=== PATIENT | female | born 1995 | race Caucasian/White ===

== ENCOUNTER 2018-02-13 20:02 | Emergency (ER) | payer SELFPAY ==
[2018-02-13 21:08] LABS: BASOPHILS 0.5 % (0-2); EOSINOPHILS 3.5 % (0-7); HEMATOCRIT 39.3 % (36.0-48.0); HEMOGLOBIN 13.4 g/dL (12-16); IMMATURE GRANULOCYTES 0.9 % (0-5); LYMPHOCYTES 30.7 % (15-50); MCH 29.3 pg (26.0-34.0); MCHC 34.1 g/dL (31.0-37.0); MEAN PLATELET VOLUME 9.1 fL (7.4-10.4); MONOCYTES 5.7 % (2-11); NEUTROPHILS 58.7 % (40-80); PLATELET COUNT 297 10x3/uL (130-400); RBC 4.57 10x6/uL (4.00-5.40); WBC 9.4 10x3/uL (4.8-10.8)
[2018-02-13 21:26] LABS: INR 1.01 (0.85-1.17); PROTIME 12.8 SECONDS (11.6-15.0)
[2018-02-13 21:30] LABS: ALBUMIN 3.6 g/dL (3.4-5.0); ALKALINE PHOSPHATASE 66 U/L (46-116); ALT (SGPT) 24 U/L (10-68); BILIRUBIN - TOTAL 0.24 mg/dL (0.2-1.3); CALC OSMOLALITY 279 mosm/kg (275-300); CALCIUM 8.4 mg/dL (8.5-10.1); CARBON DIOXIDE 29.1 mmol/L (21.0-32.0); CHLORIDE - SERUM 104 mmol/L (98-107); CREATININE - SERUM 0.8 mg/dL (0.6-1.3); GLUCOSE 88 mg/dL (74-106); HCG SERUM NEGATIVE (NEGATIVE); POTASSIUM - SERUM 3.7 mmol/L (3.5-5.1); PROTEIN - SERUM 7.7 g/dL (6.4-8.2); SODIUM 141 mmol/L (136-145); UREA NITROGEN 12 mg/dL (7-18); eGFR NON AFRICAN AMERICAN > 90 mL/min (90-120)
[2018-02-13 21:41] LABS: CKMB 1.3 U/L (0.0-3.6); CREATINE KINASE 147 UL (21-215)
[2018-02-13 21:49] LABS: TROPONIN-I < 0.017 ng/mL (0.000-0.060)
== END 2018-02-13 22:04 | disposition home or self-care (01) ==
LOC: D.ER 20:02
PROVIDERS: Family Medicine
DX: R07.89 Other chest pain (principal); M54.2 Cervicalgia

== ENCOUNTER 2018-03-22 20:12 | Emergency (ER) | payer BC ==
[~2018-03-22] VITALS: Ht 162.6 cm; Wt 90.9 kg
[~2018-03-22 20:12] MED LIST: DICLOFENAC SODI50 MG PO
[2018-03-22 20:23] VITALS: Ht 162.6 cm; Wt 90.9 kg
[2018-03-22] MEDS ORDERED: PREDNISONE20 MG PO (21:41)
[2018-03-22 22:41] VITALS: BP 125/75
== END 2018-03-22 22:41 | disposition home or self-care (01) ==
LOC: D.ER 20:12
DX: R07.89 Other chest pain (principal)

== ENCOUNTER 2018-06-29 21:08 | Emergency (ER) | payer BC ==
[~2018-06-29] VITALS: Ht 162.6 cm; Wt 93.2 kg
[~2018-06-29 21:08] MED LIST changes: +PREDNISONE20 MG PO
[2018-06-29 21:24] VITALS: Ht 162.6 cm; Wt 93.2 kg
[2018-06-29] MEDS ORDERED: CYCLOBENZAPRINE10 MG PO (21:26)
[2018-06-29] MEDS ORDERED: KLONOPIN1 MG PO (21:28)
[2018-06-29 22:04] LABS: APPEARANCE CLEAR (CLEAR); BILIRUBIN NEGATIVE (NEGATIVE); COLOR STRAW (YELLOW); GLUCOSE NEGATIVE (NEGATIVE); KETONE NEGATIVE (NEGATIVE); NITRITE NEGATIVE (NEGATIVE); PROTEIN NEGATIVE (NEGATIVE); SPECIFIC GRAVITY 1.005 (1.005-1.020); UROBILINOGEN NORMAL (NORMAL)
[2018-06-29 22:06] LABS: BACTERIA FEW /hpf (NONE SEEN); EPITHELIAL CELLS 0-5 /hpf (0-5); HCG URINE NEGATIVE (NEGATIVE); RED CELLS - URINE OCC /hpf (0-5); WHITE CELLS - URINE 0-5 /hpf (0-5)
[2018-06-29 22:32] LABS: HEMATOCRIT 36.9 % (36.0-48.0); HEMOGLOBIN 12.7 g/dL (12-16); IMMATURE GRANULOCYTES 1.6 % (0-5); MCHC 34.4 g/dL (31.0-37.0); MCV 87.2 fL (80.0-100.0); MEAN PLATELET VOLUME 9.1 fL (7.4-10.4); PLATELET COUNT 256 10x3/uL (130-400); RBC 4.23 10x6/uL (4.00-5.40); RDW 13.9 % (11.5-14.5); WBC 12.1 10x3/uL (4.8-10.8)
[2018-06-29 22:37] LABS: ALBUMIN 3.3 g/dL (3.4-5.0); ALKALINE PHOSPHATASE 62 U/L (46-116); ALT (SGPT) 29 U/L (10-68); BILIRUBIN - TOTAL 0.34 mg/dL (0.2-1.3); CALC OSMOLALITY 277 mosm/kg (275-300); CALCIUM 8.6 mg/dL (8.5-10.1); CARBON DIOXIDE 26.6 mmol/L (21.0-32.0); CHLORIDE - SERUM 105 mmol/L (98-107); CREATININE - SERUM 0.7 mg/dL (0.6-1.3); GLUCOSE 95 mg/dL (74-106); POTASSIUM - SERUM 3.8 mmol/L (3.5-5.1); PROTEIN - SERUM 7.1 g/dL (6.4-8.2); SODIUM 140 mmol/L (136-145); UREA NITROGEN 10 mg/dL (7-18); eGFR NON AFRICAN AMERICAN > 90 mL/min (90-120)
[2018-06-29] MEDS ORDERED: MACROBID100 MG PO (22:51)
[2018-06-29] MEDS ORDERED: MECLIZINE HCL25 MG PO (22:51)
[2018-06-29 22:55] VITALS: BP 119/72
[2018-06-29 23:05] LABS: BASOPHILS 1 % (0-2); EOSINOPHILS 1 % (0-7); LYMPHOCYTES 26 % (15-50); MONOCYTES 6 % (2-11); NEUTROPHILS 66 % (40-80)
[2018-06-29 23:06] LABS: PLATELET ESTIMATE NORMAL
== END 2018-06-29 22:55 | disposition home or self-care (01) ==
LOC: D.ER 21:08
PROVIDERS: Emergency Medicine
DX: N30.90 Cystitis, unspecified without hematuria (principal); R42 Dizziness and giddiness; R53.1 Weakness

== ENCOUNTER 2018-09-04 15:04 | Emergency (ER) | payer BC ==
[~2018-09-04 15:04] MED LIST changes: +CYCLOBENZAPRINE10 MG PO; +KLONOPIN1 MG PO; +MACROBID100 MG PO; +MECLIZINE HCL25 MG PO
[2018-09-04 15:07] VITALS: BMI 35.2
[2018-09-04] MEDS ORDERED: ZOLOFT25 MG PO (15:15)
[2018-09-04] MEDS ORDERED: OMEPRAZOLE20 M1 PO (17:21)
[2018-09-04] MEDS ORDERED: VOLTAREN75 MG PO (17:21)
[2018-09-04] MEDS ORDERED: ZANAFLEX4 MG PO (17:21)
[2018-09-04 17:40] VITALS: BP 109/70
== END 2018-09-04 17:45 | disposition home or self-care (01) ==
LOC: D.ER 15:04
DX: S16.1XXA Strain of muscle, fascia and tendon at neck level, initial encounter (principal); V43.52XA Car driver injured in collision with other type car in traffic accident, initial encounter; Y93.89 Activity, other specified; Y92.410 Unspecified street and highway as the place of occurrence of the external cause

== ENCOUNTER 2020-09-03 13:31 | Emergency (ER) | payer BC ==
[~2020-09-03] VITALS: Ht 162.6 cm; Wt 95.5 kg
[~2020-09-03 13:31] MED LIST changes: +HYDROCODON-ACE1 EA10 PO; +METHOCARBAMOL500 MG PO; +OMEPRAZOLE20 M1 PO; +VOLTAREN75 MG PO; +ZANAFLEX4 MG PO; +ZOLOFT25 MG PO
[2020-09-03 13:37] VITALS: Ht 162.6 cm; Wt 95.5 kg
[2020-09-03 14:17] LABS: CALC OSMOLALITY 283 mosm/kg (275-300); CALCIUM 8.8 mg/dL (8.5-10.1); CARBON DIOXIDE 30.4 mmol/L (21.0-32.0); CHLORIDE - SERUM 107 mmol/L (98-107); CREATININE - SERUM 0.7 mg/dL (0.6-1.3); GLUCOSE 101 mg/dL (74-106); POTASSIUM - SERUM 3.6 mmol/L (3.5-5.1); SODIUM 143 mmol/L (136-145); UREA NITROGEN 11 mg/dL (7-18); eGFR NON AFRICAN AMERICAN > 90 mL/min (90-120)
[2020-09-03 14:24] LABS: HCG SERUM NEGATIVE (NEGATIVE)
[2020-09-03 14:29] LABS: ALBUMIN 3.6 g/dL (3.4-5.0); ALKALINE PHOSPHATASE 64 U/L (30-120); ALT (SGPT) 29 U/L (10-68); BILIRUBIN - TOTAL 0.23 mg/dL (0.2-1.3); HCG - QUANTITATIVE (MATERNAL) 1 mIU/mL; PROTEIN - SERUM 7.3 g/dL (6.4-8.2)
[2020-09-03 14:31] LABS: BILIRUBIN NEGATIVE (NEGATIVE); KETONE NEGATIVE mg/dL (< 1+); NITRITE NEGATIVE (NEGATIVE); UROBILINOGEN NORMAL mg/dL (< 2)
[2020-09-03 14:37] LABS: AMORPHOUS SEDIMENT OCC LPF (<FEW); BACTERIA MOD HPF (<MOD); SQUAMOUS EPITHELIAL 9 HPF (0-4); WHITE CELLS - URINE 19 HPF (0-4)
[2020-09-03 14:40] LABS: BASOPHILS 0.8 % (0-2); HEMATOCRIT 40.9 % (36.0-48.0); HEMOGLOBIN 13.7 g/dL (12-16); LYMPHOCYTES 20.7 % (15-50); MCH 28.4 pg (26.0-34.0); MCHC 33.6 g/dL (31.0-37.0); MCV 84.7 fL (80.0-100.0); MEAN PLATELET VOLUME 7.3 fL (7.4-10.4); MONOCYTES 6.9 % (2-11); NEUTROPHILS 66.6 % (40-80); RBC 4.83 10x6/uL (4.00-5.40); WBC 9.4 10x3/uL (4.8-10.8)
[2020-09-03 14:42] LABS: PLATELET COUNT 324 10x3/uL (130-400)
[2020-09-03 17:29] VITALS: BP 113/77
== END 2020-09-03 17:31 | disposition home or self-care (01) ==
LOC: D.ER 13:31
PROVIDERS: Family Medicine
DX: N93.9 Abnormal uterine and vaginal bleeding, unspecified (principal)